=== PATIENT | male | born 1985 | race African-American/Black ===

== ENCOUNTER 2023-09-09 17:54 | Emergency (ER) | payer SELFPAY ==
[2023-09-09] MEDS: Acetaminophen 325 MG Tab PO ONE (19:11)
[2023-09-09] MEDS: Orphenadrine 60 MG/2 ML Inj IM ONE (19:11)
== END 2023-09-09 20:57 | disposition home or self-care (01) ==
LOC: JD.ED 17:54
DX: S39.012A Strain of muscle, fascia and tendon of lower back, initial encounter (principal); X50.1XXA Overexertion from prolonged static or awkward postures, initial encounter
CPT/HCPCS: 72100; 96372; 99283; A9270; J2360

== ENCOUNTER 2024-03-07 15:10 | Emergency (ER) | payer SELFPAY ==
[2024-03-07] MEDS: Meloxicam 7.5 MG Tab PO ONE (17:50)
[2024-03-07] MEDS: predniSONE 20 MG Tab PO ONE (17:50)
[2024-03-07] MEDS: Metoclopramide 10 MG/2 ML SDV IM ONE (17:51)
[2024-03-07] MEDS: HYDROmorphone 1 MG/ML Syringe IM ONE (17:51)
== END 2024-03-07 18:05 | disposition home or self-care (01) ==
LOC: JD.ED 15:10
DX: M47.816 Spondylosis without myelopathy or radiculopathy, lumbar region (principal); M46.1 Sacroiliitis, not elsewhere classified; Z79.52 Long term (current) use of systemic steroids; Z79.899 Other long term (current) drug therapy
CPT/HCPCS: 96372; 99283; A9270; J1171; J2765; J7512